=== PATIENT | male | born 1955 | race Caucasian/White ===

== ENCOUNTER → 2020-08-23 08:50 | Outpatient (CLI) | payer MEDICARE, SELFPAY ==
[2020-08-23 17:57] LABS: SARS-CoV-2 RNA PCR Negative
== END ==
PROVIDERS: PCP Family Medicine; Visit Provider Family Medicine
DX: R05 Cough (principal); Z20.822 Contact with and (suspected) exposure to COVID-19
CPT/HCPCS: C9803; U0003; U0005

== ENCOUNTER 2020-08-25 09:51 | Emergency (ER) | payer MEDICARE, SELFPAY ==
[2020-08-25] VITALS (25 sets, daily range): BP systolic 133–173; BP diastolic 66–96; PULSE 70–88; RESP 12–19; TEMP 36.2; O2SAT 98–100
--- NOTE | ~2020-08-25 | XR_ITS ---
EXAMINATION: XR chest 2V EXAM DATE: 08/25/2020 12:38 INDICATION: Cough and hypertension. TECHNIQUE: Frontal and lateral projections of the chest obtained and reviewed. There is no prior yanna dy for comparison. FINDINGS: Small density projecting over the right 1st rib chondral cartilage likely calcification. Th e lungs are clear. There are no pleural effusions. The cardiomediastinal silhouette is within ariella l limits. There is no pneumothorax suspected. The bones and soft tissues are unremarkable. IMPRESSION: No acute cardiopulmonary findings. Reviewed, dictated and finalized at location A.
--- NOTE | 2020-08-25 12:24 | ED.URI ---
HPI - URI/Sore Throat General Chief Complaint: Upper Respiratory Infection Stated Complaint: congestion, cough x2 wks Time Seen by Provider: 08/25/20 12:11 Source: patient Mode of arrival: ambulatory Limitations: no limitations History of Present Illness HPI Narrative: Patient is a 65-year-old male complaining of cough, body aches, loss of taste, loss of smell, and shortness of breath x2 weeks. Patient states that he did receive a Covid vaccine, [employer] approximately 1 month ago. Patient also states that he was tested twice for Covid and it was negative. Patient denies any chest pain, abdominal pain, nausea, vomiting, diarrhea, fever or chills.. Related Data Home Medications Medication Instructions Recorded Confirmed aspirin 81 mg tablet,delayed 81 mg PO ONCE tablet 08/18/19 06/20/20 release latanoprost 0.005 % eye drops 1 drp OPHTHALMIC (EYE) DAILY 05/30/20 06/20/20 tadalafil 5 mg tablet 5 mg PO .PRN tablet 05/30/20 06/20/20 Allergies Allergy/AdvReac Type Severity Reaction Status Date / Time No Known Allergies Allergy Verified 06/20/20 11:09 Review of Systems Review of Systems: All systems reviewed & are unremarkable except as noted in HPI and below Constitutional: Constitutional: Denies chills, Denies excessive sweating, Denies fatigue, Denies fever(s), Denies headache(s), Denies lethargy, Denies malaise, Denies weakness and Denies weight loss Eyes: Eyes: Denies blurry vision, Denies change in vision and Denies loss of vision ENT: Denies dizziness, Denies ear discharge, Denies headache(s), Denies lip swelling, Denies epistaxis, Denies nasal congestion, Denies neck pain, Denies throat swelling and Denies tongue swelling Cardiovascular: Cardiovascular: Denies chest pain, Denies chest pain at rest, Denies chest pain with activity, Denies diaphoresis, Denies rapid heart rate, Denies edema, Denies irregular heart rhythm, Denies lightheadedness and Denies palpitations Respiratory: Respiratory: Denies chest congestion and Denies hemoptysis Gastrointestinal: Gastrointestinal: Denies abdominal pain, Denies melena, Denies hematochezia, Denies diarrhea, Denies nausea, Denies vomiting and Denies hematemesis Musculoskeletal: Musculoskeletal: Denies abnormal gait, Denies deformity, Denies joint swelling, Denies limited range of motion, Denies neck pain and Denies numbness Neurologic: Denies Abnormal speech present, Denies abnormal gait, Denies confusion, Denies dizziness, Denies headache(s), Denies focal weakness, Denies loss of vision, Denies numbness, Denies Other visual disturbances, Denies Sensory deficit (Neuro) and Denies weakness Psychiatric: Psychiatric: Denies confusion, Denies depression, Denies auditory hallucinations, Denies homicidal ideation and Denies suicidal ideation Endocrine: Endocrine: Denies cold intolerance, Denies excessive sweating, Denies fatigue, Denies heat intolerance and Denies palpitations Hematologic/Lymphatic: Hematologic/Lymphatic: Denies easy bleeding and Denies easy bruising Allergic/Immunologic: Allergic/Immunologic: Denies lip swelling, Denies throat swelling and Denies tongue swelling PMFSH Past Medical History Medical History CKD (chronic kidney disease) stage 3, GFR 30-59 ml/min Dyslipidemia Erectile dysfunction Essential (primary) hypertension History of prostate cancer Type 2 diabetes mellitus without complication, without long-term current use of insulin Surgical History Surgical History H/O prostatectomy (~01/27/20) History of arthroscopy of right knee 05/2017- meniscus repair Family History Family History Other Diabetes mellitus Family history of pancreatic cancer Social History Social History Smoking status: Former smoker Second hand toba
--- NOTE | 2020-08-25 12:28 | ECG_ITS ---
Measurements Intervals [place] Rate: 70 P: 26 AL: 158 QRS: -31 QRSD: 145 T: 23 QT: 420 QTc: 454 Interpretive Statements SINUS RHYTHM LEFT AXIS DEVIATION RIGHT BUNDLE BRANCH BLOCK BASELINE WANDER- V1 ABNORMAL ECG Electronically Signed On 08-25-2020 12:54:26 CDT by Dimitrios Brooks D.O.
[2020-08-25 13:33] LABS: Basophils Absolute Auto 0.1 K/mm3 (0.0-0.1); Basophils Percent Auto 0.6 % (0.2-1.2); Eosinophils Absolute Auto 0.1 K/mm3 (0-0.3); Eosinophils Percent Auto 1.2 % (0-4.4); Hematocrit 35.2 % (42.0-52.0); Immature Granulocyte Absolute 0.08 K/mm3 (0.00-0.031); Immature Granulocyte Percent A 0.8 % (0-0.5); Lymphocytes Absolute Auto 1.38 K/mm3 (0.9-3.2); Lymphocytes Percent Auto 13.5 % (18.3-44.2); Mean Corpuscular HGB Conc 34.1 g/dl (32-36); Mean Corpuscular Hemoglobin 30.3 pg (26-34); Mean Corpuscular Volume 88.9 fl (80-100); Mean Platelet Volume 9.6 fl (7.4-10.4); Monocytes Absolute Auto 0.9 K/mm3 (0.1-0.6); Neutrophils Absolute Auto 7.7 K/mm3 (1.3-6.7); Neutrophils Percent Auto 74.9 % (45.5-73.1); Platelet Count Result 292 k/mm3 (150-375); Red Blood Count 3.96 M/mm3 (4.6-6.20); Red Cell Distribution Width 13.1 % (11.5-14.5); White Blood Count 10.2 K/mm3 (4.5-10.0)
[2020-08-25 13:51] LABS: Alanine Aminotransferase 25 U/L (4-50); Albumin Level 4.5 g/dL (3.5-5.1); Alkaline Phosphatase 73 U/L (38-126); Anion Gap 7 mmol/L (8-16); Aspartate Amino Transferase 35 U/L (17-59); Bilirubin,Total 0.5 mg/dL (0.2-1.3); Blood Urea Nitrogen 22 mg/dL (9-20); Calcium 9.8 mg/dL (8.4-10.2); Carbon Dioxide 30 mmol/L (22-30); Chloride 103 mmol/L (98-107); Estimated CRCL calculation 41 ml/min; Estimated Glomerular Filt Rate 41; Glucose 156 mg/dL (75-110); Potassium 4.5 mmol/L (3.4-5.0); Sodium 140 mmol/L (137-145)
[2020-08-25 14:08] LABS: Troponin I < 0.012 ng/mL (0.000-0.034)
[2020-08-26 00:06] LABS: SARS-CoV-2 RNA PCR Negative
== END 2020-08-25 14:59 | disposition home or self-care (01) ==
PROVIDERS: Emergency Provider Emergency Medicine; PCP Family Medicine
DX: B34.9 Viral infection, unspecified (principal); Z20.822 Contact with and (suspected) exposure to COVID-19; E11.22 Type 2 diabetes mellitus with diabetic chronic kidney disease; I12.9 Hypertensive chronic kidney disease with stage 1 through stage 4 chronic kidney disease, or unspecified chronic kidney disease; N18.30 Chronic kidney disease, stage 3 unspecified; Z79.84 Long term (current) use of oral hypoglycemic drugs; E78.5 Hyperlipidemia, unspecified; Z85.46 Personal history of malignant neoplasm of prostate; Z90.79 Acquired absence of other genital organ(s); Z87.891 Personal history of nicotine dependence; Z79.82 Long term (current) use of aspirin; I45.10 Unspecified right bundle-branch block
CPT/HCPCS: 36415; 71046; 80053; 84484; 85025; 93005; 99284; C9803; U0003; U0005

== ENCOUNTER → 2020-11-23 08:53 | Outpatient (CLI) | payer MEDICARE, SELFPAY ==
--- NOTE | ~2020-11-23 | US_ITS ---
EXAMINATION: US thyroid DATE: 11/23/2020 09:22 INDICATION: Goiter. Sensation of foreign body in throat. TECHNIQUE: Multiple ultrasound images of the thyroid were obtained. COMPARISON: None. FINDINGS: The right thyroid lobe measures 7.1 x 2.7 x 3.4 cm. The left thyroid lobe measures 6.4 x 2.1 x 2.2 c m. There are numerous nodules in the thyroid. In the right thyroid lobe, there is a 2.9 cm mixed cys tic and solid, hypoechoic, cjaul-uwkz-nrcd nodule with smooth margin without echogenic foci (TI-RADS TR3). In the right thyroid lobe, there is a 2.3 cm solid, hypoechoic, jlqpis-rgcb-nris nodule with il l-defined margin without echogenic foci (TR5). In the right thyroid lobe, there is a 2.3 cm solid, ve ry hypoechoic, femky-fsdx-mcqh nodule with smooth margin and punctate echogenic foci (TR5). IMPRESSION: 1. Multinodular goiter. Ultrasound-guided fine-needle aspiration of 2 nodules is recommended. Reviewed, dictated and finalized at location A. IMPRESSION: 1. Multinodular goiter. Ultrasound-guided fine-needle aspiration of 2 nodules i s recommended.
== END ==
PROVIDERS: PCP Family Medicine; Visit Provider Family Medicine
DX: R09.89 Other specified symptoms and signs involving the circulatory and respiratory systems (principal); E04.2 Nontoxic multinodular goiter
CPT/HCPCS: 76536

== ENCOUNTER → 2022-04-24 09:48 | Outpatient (CLI) | payer MEDICARE, SELFPAY ==
--- NOTE | ~2022-04-24 | US_ITS ---
US renal BI 04/24/2022 10:13 Procedure: Realtime transabdominal ultrasound of the kidneys and bladder. Indication: Chronic kidney disease stage III Comparison: No prior studies for comparison. Findings: Renal echotexture is normal bilaterally without hydronephrosis, contour deforming mass or r enal calculus. There are bilateral renal cysts measuring 1.5 cm on the right and 1.3 cm on the left. The right kidney measures 9.5 cm and left kidney measures 10.2 cm. Bladder within normal limits. Inc idental note is made of fatty infiltration of the liver. Impression: 1: Bilateral renal cysts. Reviewed, dictated and finalized at location A. ERVATION EDUCATOR Impression: 1: Bilateral renal cysts.
== END ==
PROVIDERS: PCP Family Medicine; Visit Provider Internal Medicine Nephrology
DX: E11.29 Type 2 diabetes mellitus with other diabetic kidney complication (principal); I12.9 Hypertensive chronic kidney disease with stage 1 through stage 4 chronic kidney disease, or unspecified chronic kidney disease; N18.31 Chronic kidney disease, stage 3a
CPT/HCPCS: 76775

== ENCOUNTER 2022-11-04 00:58 | Day surgery (SDC) | payer MEDICARE, SELFPAY ==
[2022-10-22 15:38] VITALS: BMI 28.4
--- NOTE | 2022-11-04 07:46 | PM.HPGS ---
History of Present Illness History of Present Illness Consent: Risks, benefits, and alternatives have been discussed and questions answered. Patient agrees to proceed with procedure. Chief complaint: neoplasm screening Narrative: August Shaffer is a 67 year old male Presents for screening colonoscopy. Patient's current weight appetite and bowel movements are normal. He denies abdominal pain. He has had no bleeding. Previous colonoscopy 2017 had benign diverticulosis. Patient has a very distant history of colon polyps sometime prior to than 10 years ago. Patient's family history is noncontributory. Patient presents today for neoplasia screening colonoscopy. Review of Systems Review of Systems: Review of systems noncontributory. [facility] Past Medical History Medical History CKD (chronic kidney disease) stage 3, GFR 30-59 ml/min Dyslipidemia Erectile dysfunction Essential (primary) hypertension GERD without esophagitis Gout History of prostate cancer Type 2 diabetes mellitus without complication, without long-term current use of insulin Surgical History Surgical History H/O prostatectomy (~01/27/20) History of arthroscopy of right knee 05/2017- meniscus repair Family History Family History Other Diabetes mellitus Family history of pancreatic cancer Social History Social History Smoking status: Former smoker Second hand tobacco smoke exposure: No Smoking end date: 05/18/01 Alcohol intake: current Drinks per week: 15 Alcohol use details: 2 rums and coke a night Substance use: current Substance use type: marijuana Other substance usage details: Daily Lack of Transportation: No Lack of Food: Never True Current Housing: Decline to Answer Concerned About Future Housing: Decline to Answer Difficulty Paying Gas/Electric Bills: Decline to Answer Difficulty Paying for Meds: Decline to Answer Currently Unemployed: Decline to Answer Education: High School Diploma/GED Difficulty w/ Childcare or Family Care: Decline to Answer Living arrangements: with family Occupation/Education: retired Gender identity (if verbalized by the patient): Male Sexual Orientation (if Verbalized by the Patient): Straight or Heterosexual Spiritual care concerns: No Agree to blood products: Yes Meds Home Medications and Allergies Home Medications Medication Instructions Recorded Confirmed Type latanoprost 0.005 % eye drops 1 drp ophthalmic (eye) DAILY 05/30/20 11/04/22 History blood sugar diagnostic (Blood #100 ea 06/13/20 11/04/22 Rx Glucose Test strips) blood-glucose meter #1 ea 06/13/20 11/04/22 Rx lancets (Fingerstix Lancets) #100 ea 06/13/20 11/04/22 Rx aspirin 81 mg tablet,delayed 81 mg PO DAILY 11/13/20 11/04/22 History release (Aspir-) metformin 1,000 mg tablet 1,000 mg PO BID #180 tabs 01/06/22 11/04/22 Rx fenofibrate 160 mg tablet 160 mg PO DAILY #90 tabs 05/13/22 11/04/22 Rx simvastatin 40 mg tablet 40 mg PO QHS #90 tabs 05/13/22 11/04/22 Rx omeprazole 40 mg capsule,delayed 40 mg PO DAILY #30 caps 07/07/22 11/04/22 Rx release amlodipine 5 mg tablet 5 mg PO DAILY #90 tabs 09/03/22 11/04/22 Rx glipizide 10 mg tablet, extended 10 mg PO BID #180 tabs 09/03/22 11/04/22 Rx release 24 hr lisinopril 20 1 tablet PO DAILY #90 tabs 09/03/22 11/04/22 Rx mg-hydrochlorothiazide 25 mg tablet allopurinol 100 mg tablet 100 mg PO DAILY #90 tabs 09/04/22 11/04/22 Rx ergocalciferol (vitamin D2) 1,250 50,000 unit PO WEEKLY #12 caps 10/15/22 11/04/22 Rx mcg (50,000 unit) capsule Allergies Allergy/AdvReac Type Severity Reaction Status Date / Time No Known Allergies Allergy Verified 11/04/22 07:45 Exam Narrative: Physical exam reveals patient to be
[2022-11-04 07:47] VITALS: BP 155/72; PULSE 72; RESP 20; TEMP 36.1; O2SAT 100; BMI 27.1
[2022-11-04] MEDS: LACTATED RINGERS 1,000 ML 150 ML IV CONT (07:59)
[2022-11-04 08:15] LABS: Glucose Point of Care 171 mg/dl (65-105)
--- NOTE | 2022-11-04 08:17 | WPDANESEPPF ---
Anes - Initial Pre Proc Eval Procedure: Operation Date: 11/04/22 09:00 Proposed Procedures p Screening Colonoscopy - Jose Houston MD Date/Time: 11/04/22 08:17 Surgeon: Jose Houston MD Pre Op Diagnosis: neoplasm screening Patient Data Age: 67 Gender: M Height: 1.78 m Weight: 85.7 kg Last Vital Signs Temp 97 F L 11/04/22 07:47 Pulse 72 11/04/22 07:47 Resp 20 11/04/22 07:47 BP 155/72 H 11/04/22 07:47 Pulse Ox 100 11/04/22 07:47 O2 Del Method Room Air 11/04/22 07:47 Allergies Allergy/AdvReac Type Severity Reaction Status Date / Time No Known Allergies Allergy Verified 11/04/22 07:45 Home Medications Medication Instructions Recorded Confirmed Type latanoprost 0.005 % eye drops 1 drp ophthalmic (eye) DAILY 05/30/20 11/04/22 History blood sugar diagnostic (Blood #100 ea 06/13/20 11/04/22 Rx Glucose Test strips) blood-glucose meter #1 ea 06/13/20 11/04/22 Rx lancets (Fingerstix Lancets) #100 ea 06/13/20 11/04/22 Rx aspirin 81 mg tablet,delayed 81 mg PO DAILY 11/13/20 11/04/22 History release (Aspir-) metformin 1,000 mg tablet 1,000 mg PO BID #180 tabs 01/06/22 11/04/22 Rx fenofibrate 160 mg tablet 160 mg PO DAILY #90 tabs 05/13/22 11/04/22 Rx simvastatin 40 mg tablet 40 mg PO QHS #90 tabs 05/13/22 11/04/22 Rx omeprazole 40 mg capsule,delayed 40 mg PO DAILY #30 caps 07/07/22 11/04/22 Rx release amlodipine 5 mg tablet 5 mg PO DAILY #90 tabs 09/03/22 11/04/22 Rx glipizide 10 mg tablet, extended 10 mg PO BID #180 tabs 09/03/22 11/04/22 Rx release 24 hr lisinopril 20 1 tablet PO DAILY #90 tabs 09/03/22 11/04/22 Rx mg-hydrochlorothiazide 25 mg tablet allopurinol 100 mg tablet 100 mg PO DAILY #90 tabs 09/04/22 11/04/22 Rx ergocalciferol (vitamin D2) 1,250 50,000 unit PO WEEKLY #12 caps 10/15/22 11/04/22 Rx mcg (50,000 unit) capsule Laboratory Tests 11/04/22 08:11 POC Capillary Glucose 171 H mg/dl (65-105) Patient hx anesthesia problems: none Family hx anesthesia problems: none Results Review: All pre-operative results and documents have been reviewed as part of the pre-operative evaluation. [facility] Past Medical History Medical History CKD (chronic kidney disease) stage 3, GFR 30-59 ml/min Dyslipidemia Erectile dysfunction Essential (primary) hypertension GERD without esophagitis Gout History of prostate cancer Type 2 diabetes mellitus without complication, without long-term current use of insulin Surgical History Surgical History H/O prostatectomy (~01/27/20) History of arthroscopy of right knee 05/2017- meniscus repair Family History Family History Other Diabetes mellitus Family history of pancreatic cancer Social History Social History Smoking status: Former smoker Second hand tobacco smoke exposure: No Smoking end date: 05/18/01 Alcohol intake: current Drinks per week: 15 Alcohol use details: 2 rums and coke a night Substance use: current Substance use type: marijuana Other substance usage details: Daily Lack of Transportation: No Lack of Food: Never True Current Housing: Decline to Answer Concerned About Future Housing: Decline to Answer Difficulty Paying Gas/Electric Bills: Decline to Answer Difficulty Paying for Meds: Decline to Answer Currently Unemployed: Decline to Answer Education: High School Diploma/GED Difficulty w/ Childcare or Family Care: Decline to Answer Living arrangements: with family Occupation/Education: retired Gender identity (if verbalized by the patient): Male Sexual Orientation (if Verbalized by the Patient): Straight or Heterosexual Spiritual care concerns: No Agree to blood products: Yes Anes - Eval Final PreProcedure Day of Procedure
[2022-11-04] MEDS: SIMETHICONE ORAL SUSPENSION 20 MG/0.3 ML 30 ML BOTTLE 0.6 ML IRRIGATION (08:46)
[2022-11-04 08:59] VITALS: BP 103/54; PULSE 55; RESP 20; O2SAT 100
[2022-11-04 09:09] VITALS: BP 104/58; PULSE 57; RESP 20; O2SAT 100
[2022-11-04 09:19] VITALS: BP 112/75; PULSE 59; RESP 20; O2SAT 100
== END 2022-11-04 09:35 | disposition home or self-care (01) ==
PROVIDERS: PCP Family Medicine; Visit Provider Internal Medicine Gastroenterology
PROC: 0DJD8ZZ Inspection of Lower Intestinal Tract, Via Natural or Artificial Opening Endoscopic (ICD-10-PCS; CPT 45378; principal; 2022-11-04 09:00)
DX: Z12.11 Encounter for screening for malignant neoplasm of colon (principal); D12.5 Benign neoplasm of sigmoid colon; K57.30 Diverticulosis of large intestine without perforation or abscess without bleeding; K64.8 Other hemorrhoids; I12.9 Hypertensive chronic kidney disease with stage 1 through stage 4 chronic kidney disease, or unspecified chronic kidney disease; E11.22 Type 2 diabetes mellitus with diabetic chronic kidney disease; N18.30 Chronic kidney disease, stage 3 unspecified; M10.9 Gout, unspecified; K21.9 Gastro-esophageal reflux disease without esophagitis; E78.5 Hyperlipidemia, unspecified; Z85.46 Personal history of malignant neoplasm of prostate; Z87.891 Personal history of nicotine dependence; Z79.82 Long term (current) use of aspirin; Z79.84 Long term (current) use of oral hypoglycemic drugs
CPT/HCPCS: 45385; 82948; 88305; J2704; J7120

== ENCOUNTER 2023-06-09 10:02 | Outpatient (CLI) | payer MEDICARE, SELFPAY ==
--- NOTE | ~2023-06-09 | CT_ITS ---
EXAMINATION: CT brain wo con DATE: 06/09/2023 10:13 INDICATION: Headache TECHNIQUE: Computed tomography (CT) of the head was performed without intravenous contrast. The dose- length product was 599.57 mGy-cm. Automated exposure control and iterative reconstruction technique w ere employed. COMPARISON: None FINDINGS: No acute intracranial hemorrhage, infarction, mass or mass effect. No ventriculomegaly or m idline shift. Basilar cisterns are patent. There is intracranial atherosclerosis. There are scattered mild periventricular and subcortical white matter changes, most likely related to small vessel ische gibran disease (microangiopathy). IMPRESSION: 1. No acute intracranial abnormality. Reviewed, dictated and finalized at location L. ESTING MANAGER
== END 2023-06-09 10:03 ==
LOC: MICIMG 10:03
PROVIDERS: PCP Nurse Practitioner Family; Visit Provider Nurse Practitioner Family
DX: R51.9 Headache, unspecified (principal)
CPT/HCPCS: 70450

== ENCOUNTER 2025-03-14 09:02 | Outpatient (RCR) | payer MEDICARE, SELFPAY ==
--- NOTE | 2025-03-14 10:14 | OPREHPOC ---
Outpatient Therapy Plan of Care This is a Multidisciplinary Plan of Care that may contain components documented by all disciplines (PT, OT, and ST.) PT Problem 1 PT Problem #1 Knowledge Deficit PT Goal 1 Goal / Goal Update 1. Patient to demonstrate independence with HEP for improved self-reliance of symptom management. Target Visit 4 PT Problem 2 PT Problem #2 Pain PT Goal 1 Goal / Goal Update 1. Patient to decrease subjective reports of pain to <3/10 for improved ADL tolerance. 2. Patient to report increased sitting tolerance to >30 min with minimal reports of R glute pain Target Visit 6 PT Problem 3 PT Problem #3 Impaired Range of Motion PT Goal 1 Goal / Goal Update 1. Pt to demonstrate symmetric hip ER/IR AROM of WFL Target Visit 6 PT Problem 4 PT Problem #4 Impaired Strength PT Goal 1 Goal / Goal Update 1. Patient will demonstrate improved strength of the bilateral hip abductors and extensors to 4+/5 on manual muscle testing in order to improve gait stability Target Visit 6
--- NOTE | 2025-03-14 10:14 | PTOPEVAL1 ---
Assessment and note entered by Philip Dueñas PT Evaluation Information Assessment Status Evaluation Diagnosis R buttock pain Onset 3 months Subjective Information Pt states he has a throbbing pain that is right underneath buttock. Pt states the only aggravating factor is sitting down. He states the longer he sits the ache will progress to 5/10 pain where he needs to stand up. Pt reports he used to walk frequently but has more recently become inactive. Reported Pain Level Pain Score 5: Self Report Assessment PT Clinical Summary The patient presents with right (R) buttock pain and symptoms consistent with piriformis syndrome, likely compressing the sciatic nerve due to muscle hypertonicity and guarded posture. Objective findings include significant R hip external rotator muscle tenderness on palpation and positive findings on sciatic nerve tension tests, indicating high neural tissue sensitivity. These factors severely limit the patient's tolerance for static positions, such as prolonged sitting, and impact functional tasks like squatting and address the persistent deficits and R hip mobility. Plan of Care Interventions Electrical Stimulation,Gait Training,Hot Pack/Cold Pack,Manual Therapy,Mechanical Traction,Neuro Re- education,Therapeutic Activities,Therapeutic Exercise,Other PT Services Indicated Yes Treatment Frequency and 1x week for 6 visits Duration These treatments will address the objective and functional deficits as defined above. The patient will be advanced safely and appropriately in order for the patient to progress towards his/her prior level of function. Additional exercises will be introduced and as well as a comprehensive home exercise program upon discharge, if needed, ?to ensure carryover of functional gains achieved in the clinic. This treatment plan has been reviewed and agreement upon by the patient.
--- NOTE | 2025-03-30 09:35 | PTOPDC ---
Assessment and note entered by Philip Dueñas, PT Evaluation Information Assessment Status Discharge - Pt Not Present Diagnosis R buttock pain Onset 3 months Subjective Information Pt called and stated his symptoms has resolved and wants to be discharged from physical therapy. Assessment PT Clinical Summary Pt called and requested discharge. He stated his symptoms have resolved after evaluation and he is continuing HEP. Plan of Care PT Services Indicated No
== END 2025-03-30 15:00 | disposition home or self-care (01) ==
LOC: ANHGOSHPT 09:02
PROVIDERS: PCP Family Medicine; Visit Provider Nurse Practitioner Family
DX: M79.18 Myalgia, other site (principal)
CPT/HCPCS: 97110; 97112; 97140; 97161